=== PATIENT | female | born 1935 | race Caucasian/White ===

== ENCOUNTER 2018-05-12 10:50 | Emergency (ER) | payer MEDICARE, BC ==
[2018-05-12 11:21] VITALS: BP 132/60
--- NOTE | 2018-05-12 12:23 | XRAY Report ---
Reason: twisted ankle Procedure Date: 05/12/2018 Accession Number: [id number] / [id number] Procedure: XR - Ankle 3 View RT CPT Code: FULL RESULT: EXAM: RIGHT ANKLE RADIOGRAPHY EXAM DATE: 05/12/2018 11:35 AM. CLINICAL HISTORY: Twisted ankle. COMPARISON: None. TECHNIQUE: 3 views. FINDINGS: Bones: There is a small bone density about the distal fibula, which may represent an avulsion fracture fragment. Joints: There is an effusion. Soft Tissues: There is marked medial and lateral soft tissue swelling. There are small calcaneal enthesophytes at the insertions of the plantar fascia and Achilles tendon. IMPRESSION: Marked soft tissue swelling. Possible distal fibula avulsion fracture fragment. Calcaneal spurs. RADIA
--- NOTE | 2018-05-12 13:08 | ED Physician Documentation ---
PD HPI LOWER EXT INJURY - Stated complaint Stated Complaint: R ANKLE INJ - Chief complaint Chief Complaint: Ext Problem - History obtained from History obtained from: Patient - History of Present Illness PD HPI LOW EXT INJURY LOCATION: Right (She got up from a sitting position yesterday and her foot was asleep. Her right foot collapsed under her and she has lateral ankle pain. No other injuries. She is able to walk and bear weight.) Review of Systems Constitutional: reports: Reviewed and negative Cardiac: reports: Reviewed and negative Respiratory: reports: Reviewed and negative PD PAST MEDICAL HISTORY - Past Medical History Cardiovascular: Hypertension Endocrine/Autoimmune: Other - Present Medications Home Medications: Ambulatory Orders Medication Instructions Recorded Confirmed Atorvastatin [Lipitor] 10 mg DAILY 05/12/18 05/12/18 Enalapril Maleate 5 mg BID 05/12/18 05/12/18 Esomeprazole Magnesium [Nexium] 20 mg DAILY 05/12/18 05/12/18 Gemfibrozil 600 mg BID 05/12/18 05/12/18 Ibuprofen 600 mg PRN PRN 05/12/18 05/12/18 Levothyroxine Sodium [Synthroid] 88 mcg DAILY 05/12/18 05/12/18 Metoprolol Tartrate 100 mg BID 05/12/18 05/12/18 hydroCHLOROthiazide 25 mg DAILY 05/12/18 05/12/18 [Hydrochlorothiazide] - Allergies Allergies/Adverse Reactions: Allergies Allergy/AdvReac Type Severity Reaction Status Date / Time No Known Drug Allergies Allergy Verified 05/12/18 11:21 - Social History Does the pt smoke?: No Smoking Status: Never smoker PD ED PE NORMAL - Vitals Vital signs reviewed: Yes - General General: Alert and oriented X 3, No acute distress - Extremities Extremities: Other (Right ankle is edematous with some small fracture blisters laterally and lateral tenderness. Normal pedal perfusion and no other tenderness other than the lateral ankle.) - Neuro Neuro: Alert and oriented X 3, Normal speech Results - Vitals Vitals: Vital Signs - 24 hr 05/12/18 11:16 Temperature 37.4 C Heart Rate 55 L Respiratory 17 Rate Blood Pressure 132/60 H O2 Saturation 98 Oxygen O2 Source Room air - Rads (name of study) R ankle 3v Radiology: EMP read contemporaneously (Soft tissue swelling with likely distal fibular avulsion fracture which is tiny.) PD MEDICAL DECISION MAKING - ED course ED course: 82-year-old woman with right ankle injury and likely a very small avulsion fracture. She is able to walk and bear weight and I do not think full nonweightbearing status is necessitated. She plans to go back to her other home in [place] within the week and understands she needs to follow-up with orth opedics there and is given a CD with the x-rays on it. - Sepsis Event Vital Signs: Vital Signs - 24 hr 05/12/18 11:16 Temperature 37.4 C Heart Rate 55 L Respiratory 17 Rate Blood Pressure 132/60 H O2 Saturation 98 Oxygen O2 Source Room air Departure - Departure Disposition: 01 Home, Self Care Clinical Impression: Closed fracture of right distal fibula Qualifiers: Encounter type: initial encounter Fracture morphology: other fracture Qualified Code(s): S82.831A - Other fracture of upper and lower end of right fibula, initial encounter for closed fracture Condition: Good Record reviewed to determine appropriate education?: Yes Instructions: ED Fx Lower Ext Comments: Keep the boot on when you are up and around, you do not need to wear it while bathing or while sleeping. Follow-up with a orthopedic surgeon on return to [place]. Let him or her know that your x-ray report here showed soft tissue swelling and a possible distal fibula avulsion fracture fragment. Take the copy of the x-ray on CD with you.
== END 2018-05-12 13:29 | disposition home or self-care (01) ==
LOC: ED 10:50
DX: S82.831A Other fracture of upper and lower end of right fibula, initial encounter for closed fracture (principal); X50.9XXA Other and unspecified overexertion or strenuous movements or postures, initial encounter; Y93.89 Activity, other specified; I10 Essential (primary) hypertension
CPT/HCPCS: 99282; 99283

== ENCOUNTER 2021-03-16 10:45 | Outpatient (CLI) | payer MEDICARE, BC | END 2021-03-16 23:59 | disposition home or self-care (01) | LOC: LAB.S 10:45 | PROVIDERS: ATTEND Physician Assistant Medical | DX: N39.0 Urinary tract infection, site not specified (principal) | CPT/HCPCS: 87086 ==

== ENCOUNTER 2021-03-18 11:33 | Emergency (ER) | payer MEDICARE, BC ==
--- NOTE | 2021-03-18 13:00 | ED Physician Documentation ---
History of Present Illness - Stated complaint Stated Complaint: ABD PX, NAUSEA,VOMITING,FEVER - Chief complaint Chief Complaint: Abd Pain - History obtained from History obtained from: Patient, Family - History of Present Illness Timing: Today, How many days ago (4) Pain level max: 7 Pain level now: 3 - Additonal information Additional information: 85-year-old female presents to the emergency department with intermittent abdominal pain for the past 3 days. Described as crampy and diffuse. Nothing makes it better or worse. Feels like it radiates to her back. She was seen at the walk-in clinic 2 days ago and started on Macrobid for presumed UTI. She states she did take a dose of the medication but is not feeling better. T-max 100.2 Intermittent vomiting. has had constipation as well. Review of Systems Ten Systems: 10 systems reviewed and negative Constitutional: denies: Fever, Chills Ears: denies: Ear pain Nose: denies: Rhinorrhea / runny nose, Congestion Cardiac: denies: Chest pain / pressure Respiratory: denies: Cough GI: reports: Abdominal Pain, Vomiting, Constipation. denies: Diarrhea, Hemate mesis, Bloody / black stool : denies: Dysuria, Frequency, Hesitancy Skin: denies: Rash Musculoskeletal: denies: Neck pain, Back pain Neurologic: denies: Headache PD PAST MEDICAL HISTORY - Past Medical History Cardiovascular: Hypertension Endocrine/Autoimmune: Other - Present Medications Home Medications: Ambulatory Orders Medication Instructions Recorded Confirmed Atorvastatin [Lipitor] 40 mg DAILY 05/12/18 05/12/18 Enalapril Maleate 5 mg BID 05/12/18 03/18/21 Esomeprazole Magnesium [Nexium] 20 mg DAILY 05/12/18 03/18/21 Ibuprofen 600 mg PRN PRN 05/12/18 03/18/21 Levothyroxine Sodium [Synthroid] 88 mcg DAILY 05/12/18 03/18/21 Metoprolol Tartrate 100 mg BID 05/12/18 03/18/21 gemfibroziL [Gemfibrozil] 600 mg BID 05/12/18 03/18/21 hydroCHLOROthiazide 25 mg DAILY 05/12/18 03/18/21 [Hydrochlorothiazide] Magnesium Citrate 296 ml PO ONCE PRN #1 03/18/21 Ondansetron Odt [Zofran] 4 mg TL Q6H PRN #10 tablet 03/18/21 polyethylene glycoL 3350 [Miralax] 17 gm PO DAILY PRN #1 bottle 03/18/21 - Allergies Allergies/Adverse Reactions: Allergies Allergy/AdvReac Type Severity Reaction Status Date / Time No Known Drug Allergies Allergy Verified 03/18/21 12:01 - Social History Does the pt smoke?: No Smoking Status: Never smoker PD ED PE NORMAL - Vitals Vital signs reviewed: Yes - General General: Alert and oriented X 3, No acute distress - HEENT HEENT: PERRL, Moist mucous membranes - Neck Neck: Supple, no meningeal sign - Cardiac Cardiac: RRR, Strong equal pulses - Respiratory Respiratory: No respiratory distress, Clear bilaterally - Abdomen Abdomen: Soft, Non tender, Non distended - Back Back: No CVA TTP, No spinal TTP - Derm Derm: Warm and dry - Extremities Extremities: No edema - Neuro Neuro: Alert and oriented X 3 - Psych Psych: Normal mood, Normal affect Results - Vitals Vitals: Vital Signs - 24 hr 03/18/21 03/18/21 03/18/21 11:58 13:59 14:28 Temperature 37 C Heart Rate 64 62 67 Respiratory 18 16 18 Rate Blood Pressure 116/52 L 119/39 L 130/53 L O2 Saturation 99 99 100 Oxygen O2 Source Room air - Labs Labs: Laboratory Tests 03/18/21 03/18/21 03/18/21 13:27 13:27 13:41 WBC 6.0 RBC 4.09 L Hgb 12.3 Hct 37.5 MCV 91.7 MCH 30.1 MCHC 32.8 RDW 13.4 Plt Count 155 MPV 9.6 Neut # (Auto) 5.5 Lymph # (Auto) 0.2 L [place] # (Auto) 0.3 Eos # (Auto) 0.1 Baso # (Auto) 0.0 Absolute Nucleated RBC 0.00 Nucleated RBC % 0.0 Sodium 133 L Potassium 4.0 Chloride 99 L Carbon Dioxide 24 Anion Gap 10.0 BUN 25 H Creatinine 1.1 H Estimated GFR (MDRD) 47 L Glucose 117 H Calcium 8.6 Total Bilirubin 0.8 AST 22 ALT 15 Alkaline Phosphatase 51 Total Protein 6.3 L Albumin 3.3 Globulin 3.0 Albumin/Globulin Ratio 1.1 Lipase 18 L Urine Color DARK YELLOW Urine Clarity CLEAR Urine pH 5.5 Ur Specific [place] >=1.030 H Urine Protein NEGATIVE Urine Glucose (UA) NEGATIVE Urine Ketones TRACE Urine Occult Blood NEGATIVE Urine Nitrite NEGATIVE Urine Bilirubin NEGATIVE Urine Urobilinogen 1 (NORMAL) Ur Leukocyte Esterase TRACE H Urine RBC 0-5 Urine WBC 0-3 Ur Squamous Epith Cells FEW Squamous Urine Bacteria Rare Urine Casts 0-2 Hyaline Casts Urine Mucus Few Strands Ur Microscopic Review INDICATED Urine Culture Comments INDICATED - Rads (name of study) CT abd/pelvis Radiology: Prelim report reviewed, EMP read contemporaneously, See rad report PD MEDICAL DECISION MAKING - ED course Complexity details: reviewed results, re-evaluated patient, considered differential, d/w patient, d/w family ED course: 85-year-old female presents to the emergency department with abdominal pain for the past 3 days. Appears to have constipation on CT scan. Could have a low- grade infectious versus inflammatory enterocolitis as well. No abscess. No perforation. Patient is well-appearing, nontoxic. Afebrile. Tolerating p.o. without difficulty. We will treat her for constipation. Patient also has a hiatal hernia. White blood cell count is normal today. No indication for antibiotics at this time. Patient and family counseled regarding signs and symptoms for which I believe and urgent re-evaluation would be necessary. Patient with good understanding of and agreement to plan and is comfortable going home at this time This document was made in part using voice recognition software. While efforts are made to proofread this document, sound alike and grammatical errors may occur. Tolerating p.o. without difficulty here. IMPRESSION: 1. Mild constipation. Finding is concerning for low-grade infectious or inflammatory enterocolitis involving terminal ileum, ascending colon and proximal to mid transverse colon. No abscess collection. No free fluid or free air. 2. Small left pleural effusion and trace right pleural effusion with adjacent bibasilar dependent atelectasis. 3. Large hiatal hernia. 4. Left renal cysts as above. No hydronephrosis. Prior cholecystectomy. Departure - Departure Disposition: Home, Self Care Clinical Impression: Hiatal hernia, Dehydration Constipation Qualifiers: Constipation type: unspecified constipation type Qualified Code(s): K59.00 - Constipation, unspecified Condition: Good Instructions: Hiatal Hernia, ED Constipation Follow-Up: your,doctor in 1 week [Other] Prescriptions: Magnesium Citrate 296 ml PO ONCE PRN #1 PRN Reason: Constipation polyethylene glycoL 3350 [Miralax] 17 gm PO DAILY PRN #1 bottle PRN Reason: Constipation Ondansetron Odt [Zofran] 4 mg TL Q6H PRN #10 tablet PRN Reason: Nausea / Vomiting Comments: Drink plenty of water at home. Follow-up with your doctor for further care. Return if you worsen. You appear to have constipation on your CT scan today. It is possible there is a slight inflammation in the colon as well. You also have a hiatal hernia. Discharge Date/Time: 03/18/21 15:36
[2021-03-18] MEDS ORDERED: SODIUM CHLORIDE 0.9% 1,000 ML IV STA ×2 (13:05)
[2021-03-18] MEDS ORDERED: IOVERSOL 320 100 ML VIAL IVP ONE ×2 (13:28→14:21)
[2021-03-18 13:32] LABS: BASOPHILS % (AUTO) 0.2 %; EOSINOPHILS # (AUTO) 0.1 10^3/uL (0.0-0.7); EOSINOPHILS % (AUTO) 0.8 %; HCT - HEMATOCRIT 37.5 % (37.0-47.0); HGB - HEMOGLOBIN 12.3 g/dL (12.0-16.0); LYMPHOCYTES # (AUTO) 0.2 10^3/uL (1.5-3.5); LYMPHOCYTES % (AUTO) 2.8 %; MEAN CORPUSCULAR HEMOGLOBIN 30.1 pg (27.0-31.0); MEAN CORPUSCULAR HGB CONC 32.8 g/dL (32.0-36.0); MEAN CORPUSCULAR VOLUME 91.7 fL (81.0-99.0); MEAN PLATELET VOLUME 9.6 fL (7.9-10.8); MONOCYTES # (AUTO) 0.3 10^3/uL (0.0-1.0); MONOCYTES % (AUTO) 4.5 %; NEUTROPHILS # (AUTO) 5.5 10^3/uL (1.5-6.6); NEUTROPHILS % (AUTO) 91.4 %; PLT - PLATELET COUNT 155 10^3/uL (130-450); RED BLOOD COUNT 4.09 10^6/uL (4.20-5.40); RED CELL DISTRIBUTION WIDTH 13.4 % (12.0-15.0)
[2021-03-18 13:44] LABS: ALBUMIN 3.3 g/dL (3.2-5.5); ALBUMIN/GLOBULIN RATIO 1.1 (1.0-2.2); BILIRUBIN,TOTAL 0.8 mg/dL (0.2-1.0); CALCIUM 8.6 mg/dL (8.5-10.3); CREATININE 1.1 mg/dL (0.4-1.0); TOTAL PROTEIN 6.3 g/dL (6.7-8.2)
[2021-03-18 14:07] LABS: GLUCOSE, URINE (UA) NEGATIVE (NEGATIVE); KETONES,URINE (UA) TRACE mg/dL (NEGATIVE); LEUKOCYTE ESTERASE, URINE TRACE (NEGATIVE); NITRITE,URINE NEGATIVE (NEGATIVE); OCCULT BLOOD,URINE NEGATIVE (NEGATIVE); PH,URINE 5.5 PH (5.0-7.5); PROTEIN,URINE NEGATIVE (NEGATIVE); UROBILINOGEN,URINE 1 (NORMAL) E.U./dL (NORMAL)
[2021-03-18 14:08] LABS: CLARITY,URINE CLEAR (CLEAR)
[2021-03-18 14:09] LABS: BILIRUBIN,URINE NEGATIVE (NEGATIVE); ICTOTEST,URINE NEGATIVE
[2021-03-18 14:11] LABS: BACTERIA,URINE Rare /HPF (None Seen); CASTS, URINE 0-2 Hyaline Casts /LPF; MUCUS,URINE Few Strands; RBC,URINE 0-5 /HPF (0-5); SQUAMOUS EPITHELIAL CELL,UR FEW Squamous (<= Few); WBC,URINE 0-3 /HPF (0-5)
[2021-03-18 14:29] VITALS: BP 130/53
--- NOTE | 2021-03-18 14:36 | CT Report ---
PROCEDURE: Abdomen/Pelvis W INDICATIONS: diffuse abd pain, vomiting. CONTRAST: IV CONTRAST: Optiray 320 ml: 100 PO CONTRAST: *NO PO CONTRAST TECHNIQUE: After the administration of IV contrast, 5 mm thick sections acquired from the diaphragms to the symp hysis. 5 mm thick coronal and sagittal reformats were acquired. For radiation dose reduction, the f ollowing was used: automated exposure control, adjustment of mA and/or kV according to patient size. COMPARISON: None. FINDINGS: Image quality: Excellent. ABDOMEN: Lung bases: Small left pleural effusion and trace right pleural effusion is seen with adjacent sound effects technician ior medial bibasilar atelectasis. Large hiatal hernia is seen. Heart size is normal. Solid organs: Liver and spleen are normal in size and enhancement. Gallbladder is surgically absent . Biliary system is non dilated. Pancreas enhances normally. No adrenal nodules. Kidneys demonstr ate normal size and enhancement, without hydronephrosis. 2 lower pole left renal cysts are seen measu res up to 4.1 x 4.2 cm in size. Peritoneum and bowel: There is fecal stasis throughout the colon extending to the rectum. No evidence of bowel obstruction. Questionable wall thickening involving distal ileum, ascending colon and trans verse colon. No significant mesenteric fat stranding. No abscess collection. No free fluid or free ai r. Nodes and vessels: No retroperitoneal or mesenteric adenopathy by size criteria. Aorta and inferior vena cava are normal in size. Moderate atherosclerotic calcifications in abdominal aorta is seen. Miscellaneous: No ventral hernias. PELVIS: Genitourinary: Bladder wall thickness is normal. Miscellaneous: No inguinal hernias or adenopathy. Bones: No suspicious bony lesions. No vertebral body compression fractures. Moderate rightward sco liosis of lumbar spine centered at L2-3 level is seen. Bony fusion at L1-2 level is noted. Degenerati ve disc disease throughout lower thoracic and lumbar spine is seen. IMPRESSION: 1. Mild constipation. Finding is concerning for low-grade infectious or inflammatory enterocolitis in volving terminal ileum, ascending colon and proximal to mid transverse colon. No abscess collection. No free fluid or free air. 2. Small left pleural effusion and trace right pleural effusion with adjacent bibasilar dependent ate lectasis. 3. Large hiatal hernia. 4. Left renal cysts as above. No hydronephrosis. Prior cholecystectomy. Reviewed by: Rey Weiner MD on 03/18/2021 2:35 PM PDT Approved by: Rey Weiner MD on 03/18/2021 2:35 PM PDT Station ID: [id number]
== END 2021-03-18 15:36 | disposition home or self-care (01) ==
LOC: ED 11:33
DX: K44.9 Diaphragmatic hernia without obstruction or gangrene (principal); K59.00 Constipation, unspecified; E86.0 Dehydration; J90 Pleural effusion, not elsewhere classified; I10 Essential (primary) hypertension
CPT/HCPCS: 36415; 74177; 80053; 81001; 83690; 85025; 87086; 99284; Q9967; 81003

== ENCOUNTER 2023-03-07 12:50 | Outpatient (CLI) | payer MEDICARE, BC | END 2023-03-07 23:59 | disposition home or self-care (01) | LOC: LAB.S 12:50 | PROVIDERS: ATTEND Physician Assistant | DX: R30.0 Dysuria (principal) | CPT/HCPCS: 87086; 87181 ==

== ENCOUNTER 2024-03-10 08:00 | Outpatient (CLI) | payer BC, MEDICARE | END 2024-03-10 23:59 | disposition home or self-care (01) | LOC: LAB 08:00 | PROVIDERS: ATTEND Emergency Medicine | DX: R30.0 Dysuria (principal) | CPT/HCPCS: 87086 ==

== ENCOUNTER 2024-04-17 08:20 | Emergency (ER) | payer MEDICARE ==
--- NOTE | 2024-04-17 08:37 | ED Physician Documentation ---
History of Present Illness - Stated complaint Stated Complaint: - Chief complaint Chief Complaint: Abd Pain - History obtained from History obtained from: Patient - History of Present Illness Timing: Today Pain level max: 2 Pain level now: 2 - Additonal information Additional information: 88-year-old male states that she thinks that she has a UTI. Has pain and burning with urination. No fevers. Worse with urination, nothing makes it better. Symptoms started yesterday. Has a history of frequent recurrent UTIs. No fevers. No chills. No nausea or vomiting. No abdominal pain or back pain. Took Pyridium last night Review of Systems Constitutional: denies: Fever, Chills Respiratory: denies: Cough GI: denies: Vomiting : reports: Dysuria, Frequency, Hesitancy PD PAST MEDICAL HISTORY - Past Medical History Cardiovascular: Hypertension Endocrine/Autoimmune: Other - Past Surgical History General: Cholecystectomy, Appendectomy - Present Medications Home Medications: Ambulatory Orders Medication Instructions Recorded Confirmed Atorvastatin [Lipitor] 40 mg DAILY 05/12/18 05/12/18 Enalapril Maleate 5 mg BID 05/12/18 03/18/21 Esomeprazole Magnesium [Nexium] 20 mg DAILY 05/12/18 03/18/21 Ibuprofen 600 mg PRN PRN 05/12/18 03/18/21 Levothyroxine Sodium [Synthroid] 88 mcg DAILY 05/12/18 03/18/21 Metoprolol Tartrate 100 mg BID 05/12/18 03/18/21 gemfibroziL [Gemfibrozil] 600 mg BID 05/12/18 03/18/21 hydroCHLOROthiazide 25 mg DAILY 05/12/18 03/18/21 [Hydrochlorothiazide] Magnesium Citrate 296 ml PO ONCE PRN #1 03/18/21 Ondansetron Odt [Zofran] 4 mg TL Q6H PRN #10 tablet 03/18/21 polyethylene glycoL 3350(BULK) 17 gm PO DAILY PRN #1 bottle 03/18/21 [Miralax] cephALEXin [Keflex] 500 mg PO Q6H #20 cap 04/17/24 - Allergies Allergies/Adverse Reactions: Allergies Allergy/AdvReac Type Severity Reaction Status Date / Time No Known Drug Allergies Allergy Verified 04/17/24 08:32 - Social History Does the pt smoke?: No Smoking Status: Never smoker Does the pt drink ETOH?: Yes Does the pt have substance abuse?: No PD ED PE NORMAL - Vitals Vital signs reviewed: Yes - General General: Alert and oriented X 3, No acute distress - HEENT HEENT: Moist mucous membranes - Neck Neck: Supple, no meningeal sign - Cardiac Cardiac: RRR, Strong equal pulses - Respiratory Respiratory: No respiratory distress, Clear bilaterally - Abdomen Abdomen: Soft, Non tender, Non distended - Back Back: No CVA TTP - Derm Derm: Warm and dry - Neuro Neuro: Alert and oriented X 3 - Psych Psych: Normal mood, Normal affect Results - Vitals Vitals: Vital Signs - 24 hr 04/17/24 08:29 Temperature 35.9 C L Heart Rate 77 Respiratory 18 Rate Blood Pressure 139/101 H O2 Saturation 98 Oxygen O2 Source Room air - Labs Labs: Laboratory Tests 04/17/24 08:35 Urine Color DARK YELLOW Urine Clarity CLOUDY Urine pH 6.0 Ur Specific [place] 1.015 Urine Protein 30 H Urine Glucose (UA) NEGATIVE Urine Ketones NEGATIVE Urine Occult Blood LARGE H Urine Nitrite POSITIVE H Urine Bilirubin NEGATIVE Urine Urobilinogen 1 (NORMAL) Ur Leukocyte Esterase MODERATE H Urine RBC 11-25 H Urine WBC >25 H Ur Squamous Epith Cells MOD Squamous H Urine Bacteria Few Ur Microscopic Review INDICATED Urine Culture Comments NOT INDICATED PD Medical Decision Making - ED course Complexity details: reviewed results, re-evaluated patient, considered differential, d/w patient ED course: Patient with symptoms consistent with her prior history of UTIs. Urinalysis is consistent with UTI.. Urine culture was sent. Will place on cephalexin. History of pansensitive E. coli. No evidence of pyelonephritis. No evidence of sepsis. Patient counseled regarding signs and symptoms for which I believe and urgent re-evaluation would be necessary. Patient with good understanding of and agreement to plan and is comfortable going home at this time This document was made in part using voice recognition software. While efforts are made to proofread this document, sound alike and grammatical errors may occur. Departure - Departure Disposition: 01 Home, Self Care Clinical Impression: UTI (urinary tract infection) Qualifiers: Urinary tract infection type: acute cystitis Hematuria presence: without hematuria Qualified Code(s): N30.00 - Acute cystitis without hematuria Condition: Good Instructions: ED UTI Cystitis Female Follow-Up: Manny Person MD [Primary Care Provider] - Prescriptions: cephALEXin [Keflex] 500 mg PO Q6H #20 cap Comments: Your prescription was sent to [facility] in [place]. Please take all antibiotics until gone. Please return if you worsen. As we discussed if any antibiotic changes needed based on the urine culture, we will contact you for this. Forms: PCP List Discharge Date/Time: 04/17/24 08:54
[2024-04-17 08:43] LABS: BILIRUBIN,URINE NEGATIVE (NEGATIVE); GLUCOSE, URINE (UA) NEGATIVE (NEGATIVE); KETONES,URINE (UA) NEGATIVE (NEGATIVE); LEUKOCYTE ESTERASE, URINE MODERATE (NEGATIVE); NITRITE,URINE POSITIVE (NEGATIVE); OCCULT BLOOD,URINE LARGE (NEGATIVE); PROTEIN,URINE 30 mg/dL (NEGATIVE); UROBILINOGEN,URINE 1 (NORMAL) E.U./dL (NORMAL)
[2024-04-17 08:46] VITALS: BP 139/101; O2SAT 98
[2024-04-17 08:51] LABS: CLARITY,URINE CLOUDY (CLEAR)
[2024-04-17 08:57] LABS: BACTERIA,URINE Few /HPF (None Seen); SQUAMOUS EPITHELIAL CELL,UR MOD Squamous (<= Few); WBC,URINE >25 /HPF (0-5)
== END 2024-04-17 08:54 | disposition home or self-care (01) ==
LOC: ED 08:20
DX: N30.00 Acute cystitis without hematuria (principal); I10 Essential (primary) hypertension; Z87.440 Personal history of urinary (tract) infections; Z79.899 Other long term (current) drug therapy
CPT/HCPCS: 81001; 81003; 87086; 99282; 99283